=== PATIENT | male | born 1970 | race Caucasian/White ===

== ENCOUNTER 2016-08-25 10:39 | Emergency (ER) | payer OTHER ==
[2016-08-25 11:02] VITALS: BP 130/84; PULSE 81; RESP 18; TEMP 97.7; O2SAT 94
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
== END 2016-08-25 13:10 | disposition home or self-care (01) ==
LOC: CED 10:39
DX: S16.1XXA Strain of muscle, fascia and tendon at neck level, initial encounter (principal); S46.812A Strain of other muscles, fascia and tendons at shoulder and upper arm level, left arm, initial encounter; S46.912A Strain of unspecified muscle, fascia and tendon at shoulder and upper arm level, left arm, initial encounter; V49.40XA Driver injured in collision with unspecified motor vehicles in traffic accident, initial encounter
CPT/HCPCS: 73030-PO; 99214-PO; G0463-PO

== ENCOUNTER 2016-12-12 08:29 | Emergency (ER) | payer OTHER ==
[2016-12-12 08:37] VITALS: RESP 18; TEMP 98.2
[2016-12-12] MEDS ORDERED: NS 1,000 ML IV ONE (08:50)
--- NOTE | 2016-12-12 08:54 | EDPHY ---
H & P Stated Complaint: 2 days general aches, nausea, diarrhea, fatigue Time Seen by Provider: 12/12/16 08:36 HPI/ROS: CHIEF COMPLAINT: "I feel flu-like" HISTORY OF PRESENT ILLNESS: This is a 46-year-old male with a history of Crohn' s disease, in remission for 5 years, who presents with 2 days of myalgias, crampy abdominal pain, an episode of vomiting yesterday and 3 episodes of diarrhea yesterday. He has not had vomiting or diarrhea today but feels fatigued and achy. He denies fever. He has not had cough or sore throat. No ill contacts, known bad food, travel, or camping. 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 He does not believe that these symptoms are suggestive a Crohn's disease recurrence. REVIEW OF SYSTEMS: A ten point review of systems was performed and is negative with the exception of the items mentioned in the HPI. 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 - Physical Exam Exam: General Appearance: Alert. Vital signs reviewed. Eyes: Pupils equal and round, no conjunctival injection, no discharge. Anicteric. ENT, Mouth: Mucous membranes are moist, no oropharyngeal erythema or edema. Neck: No lymphadenopathy, supple. Respiratory: Lungs are clear to auscultation; no wheezes, rales, or rhonchi. Cardiovascular: Regular rate and rhythm; no murmur, rub, or gallop. Gastrointestinal: Abdomen is soft and with mild tenderness in the lower quadrants, no guarding, no masses or organomegaly, bowel sounds normal. Skin: Warm and dry, no rashes on exposed skin, normal color. Back: Nontender to palpation over the thoracolumbar spine. No CVAT. Extremities: No lower extremity edema, no calf tenderness or swelling. Neurological: Alert and oriented. Moving all four extremities easily and equally. Psychiatric: Normal affect. Constitutional: Initial Vital Signs Temperature (C) 36.8 C 12/12/16 08:35 Heart Rate 78 12/12/16 08:35 Respiratory Rate 18 12/12/16 08:35 Blood Pressure 118/70 12/12/16 08:35 O2 Sat (%) 95 12/12/16 08:35 O2 Delivery Mode Room Air Allergies/Adverse Reactions: No Known Allergies Allergy (Verified 12/12/16 08:37) Home Medications: Medication Instructions Recorded NK [No Known Home Meds] 12/12/16 Medical Decision Making ED Course/Re-evaluation: 46-year-old male with Crohn's disease in remission who presents with 2 days of crampy abdominal pain, vomiting, diarrhea. He has not had vomiting or diarrhea today but feels diffuse myalgias and fatigue. I think that he would benefit from increased fluids. He does not feel that he would be able to drink enough fluid on his own to replenish himself and he will be given 1 L of IV normal saline. He is not febrile. He does not appear toxic. He does not have a surgical abdomen. 9:45 a.m.: Re-evaluated. His abdomen remains soft with some mild lower abdominal tenderness, no guarding or rebound. He feels better after receiving some IV fluids. He is comfortable returning home for continued rest. Differential Diagnosis: I considered a differential diagnosis that includes but is not limited to recurrence of Crohn's disease, gastroenteritis, bacterial or viral enteritis, and appendicitis. - Data Points Laboratory Results: Laboratory Results 12/12/16 09:00 12/12/16 09:00 12/12/16 12/12/16 09:00 09:00 WBC 6.58 10^3/uL 10^3/uL (3.80-9.50) RBC 5.62 10^6/uL 10^6/uL (4.40-6.38) Hgb 16.0 g/dL g/dL (13.7-17.5) Hct 46.2 % % (40.0-51.0) MCV 82.2 fL fL (81.5-99.8) MCH 28.5 pg pg (27.9-34.1) MCHC 34.6 g/dL g/dL (32.4-36.7) RDW 12.9 % % (11.5-15.2) Plt Count 191 10^3/uL 10^3/uL (150-400) MPV 9.7 fL fL (8.7-11.7) Neut % (Auto) 76.5 % H % (39.3-74.2) Lymph % (Auto) 14.3 % L % (15.0-45.0) Rooks % (Auto) 8.1 % % (4.5-13.0) Eos % (Auto) 0.5 % L % (0.6-7.6) Baso % (Auto) 0.3 % % (0.3-1.7) Nucleat RBC Rel Count 0.0 % % (0.0-0.2) Absolute Neuts (auto) 5.04 10^3/uL 10^3/uL (1.70-6.50) Absolute Lymphs (auto) 0.94 10^3/uL L 10^3/uL (1.00-3.00) Absolute Monos (auto) 0.53 10^3/uL 10^3/uL (0.30-0.80) Absolute Eos (auto) 0.03 10^3/uL 10^3/uL (0.03-0.40) Absolute Basos (auto) 0.02 10^3/uL 10^3/uL (0.02-0.10) Absolute Nucleated RBC 0.00 10^3/uL 10^3/uL (0-0.01) Immature Gran % 0.3 % % (0.0-1.1) Immature Gran # 0.02 10^3/uL 10^3/uL (0.00-0.10) Sodium 140 mEq/L mEq/L (134-144) Potassium 4.0 mEq/L mEq/L (3.5-5.2) Chloride 104 mEq/L mEq/L (97-110) Carbon Dioxide 23 mEq/l mEq/l (22-31) Anion Gap 13 mEq/L mEq/L (8-16) BUN 13 mg/dL mg/dL (7-23) Creatinine 0.8 mg/dL mg/dL (0.7-1.3) Estimated GFR > 60 Glucose 88 mg/dL mg/dL (70-100) Calcium 9.2 mg/dL mg/dL (8.5-10.4) Departure - Departure Disposition: Home, Routine, Self-Care Clinical Impression: Gastroenteritis Condition: Good Instructions: Gastroenteritis (ED) Referrals: MARYLIN LYNN [Primary Care Provider] - As per Instructions
[2016-12-12 09:07] LABS: % IMMATURE GRANULYOCYTES 0.3 % (0.0-1.1); ABSOLUTE IMMATURE GRANULOCYTES 0.02 10^3/uL (0.00-0.10); ADD DIFF? NO; ADD MORPH? NO; ADD SCAN? NO; ATYPICAL LYMPHOCYTE FLAG 10 (0-99); FRAGMENT RBC FLAG 0 (0-99); HEMATOCRIT 46.2 % (40.0-51.0); LEFT SHIFT FLG 0 (0-99); LIPEMIA HEMOLYSIS FLAG 90 (0-99); MEAN CELL HEMOGLOBIN 28.5 pg (27.9-34.1); MEAN CELL HEMOGLOBIN CONCENTR. 34.6 g/dL (32.4-36.7); MEAN CELL VOLUME 82.2 fL (81.5-99.8); MEAN PLATELET VOLUME 9.7 fL (8.7-11.7); PLATELET CLUMPS FLAG 0 (0-99); PLATELET COUNT 191 10^3/uL (150-400); RED BLOOD CELL COUNT 5.62 10^6/uL (4.40-6.38); RED CELL DISTRIBUTION WIDTH 12.9 % (11.5-15.2)
[2016-12-12 09:19] LABS: ANION GAP 13 mEq/L (8-16); CALCIUM 9.2 mg/dL (8.5-10.4); CARBON DIOXIDE 23 mEq/l (22-31); CHLORIDE 104 mEq/L (97-110); CREATININE 0.8 mg/dL (0.7-1.3); GLOMERULAR FILTRATION RATE > 60; GLUCOSE 88 mg/dL (70-100); SODIUM 140 mEq/L (134-144)
[2016-12-12 09:53] VITALS: BP 107/66; PULSE 51; O2SAT 97
== END 2016-12-12 09:52 | disposition home or self-care (01) ==
LOC: CED 08:29
DX: K52.9 Noninfective gastroenteritis and colitis, unspecified (principal); Z87.891 Personal history of nicotine dependence
CPT/HCPCS: 80048-PO; 85025-PO